=== PATIENT | female | born 1945 | race Caucasian/White ===

== ENCOUNTER → 2018-01-11 | Outpatient (CLI) | payer MEDICARE ==
[~2018-01-11] MED LIST: AREDS PO; ASPI81CH PO; Adalat/Procardi20 MG PO; CIPR500 PO; HYDACE5 PO; INS70/30I SC; INSUL100I SC; LEVSOD50 PO; LISI20 PO; METF500 PO; METR500 PO; MULVITMIND PO; NIFE30ER PO; OSTEO BI-FLEX1 EAC2 PO; OXYACE5T PO; Omeprazole20 M1 PO; PARO20 PO; RXHYDACE PO
== END | disposition home or self-care (01) ==
LOC: LAB SRC 11:04
DX: N30.00 Acute cystitis without hematuria (principal); R11.0 Nausea
CPT/HCPCS: 87077; 87086; 87186

== ENCOUNTER 2019-01-29 04:12 | Emergency (ER) | payer MEDICARE ==
[~2019-01-29] VITALS: Ht 165.1 cm; Wt 64.4 kg
[2019-01-29] MEDS ORDERED: Prednisone20 MG PO (05:05)
[2019-01-29] MEDS ORDERED: Amoxicillin875 MG PO (05:05)
== END 2019-01-29 05:38 | disposition home or self-care (01) ==
LOC: ER 04:12
DX: J02.9 Acute pharyngitis, unspecified (principal); K12.2 Cellulitis and abscess of mouth; E03.9 Hypothyroidism, unspecified; E11.9 Type 2 diabetes mellitus without complications; I10 Essential (primary) hypertension; Z88.5 Allergy status to narcotic agent; Z79.899 Other long term (current) drug therapy; Z79.4 Long term (current) use of insulin; Z79.82 Long term (current) use of aspirin
CPT/HCPCS: 71046; 87081; 87430; 99283-25; J7512

== ENCOUNTER 2019-03-09 22:22 | Emergency (ER) | payer MEDICARE ==
[~2019-03-09] VITALS: Ht 162.6 cm; Wt 69.0 kg
[~2019-03-09 22:22] MED LIST changes: +Amoxicillin875 MG PO; +Prednisone20 MG PO
[2019-03-10 01:10] LABS: BASOPHILS ABSOLUTE AUTO 0.02 K/mm3 (0.00-0.23); BASOPHILS PERCENT AUTO 0 % (0-2); EOSINOPHILS PERCENT AUTO 0 % (0-6); Hematocrit 39.7 % (33.0-51.0); Hemoglobin 13.6 g/dL (11.5-16.0); IMMATURE GRAN ABSOLUTE AUTO 0.02 K/mm3 (0.00-0.10); IMMATURE GRAN PERCENT AUTO 0 % (0-1); LYMPHOCYTES ABSOLUTE AUTO 0.98 K/mm3 (0.84-5.20); LYMPHOCYTES PERCENT AUTO 14 % (21-46); MONOCYTES ABSOLUTE AUTO 0.07 K/mm3 (0.16-1.47); MONOCYTES PERCENT AUTO 1 % (4-13); Mean Corpuscular HGB 29.2 pg (26.0-34.0); Mean Corpuscular HGB Conc 34.3 g/dL (31.5-36.5); Mean Corpuscular Volume 85 fL (80-100); Mean Platelet Volume 10.7 fL (9.1-12.4); NEUTROPHILS ABSOLUTE AUTO 5.73 K/mm3 (1.96-9.15); NEUTROPHILS PERCENT AUTO 84 % (41-73); Platelet Count 312 K/mm3 (150-400); RDW Coefficient Variation 12.1 % (11.7-14.2); RDW Standard Deviation 37.2 fL (35.1-46.3); Red Blood Cell Count 4.66 M/mm3 (3.80-5.20); White Blood Cell Count 6.82 K/mm3 (4.00-11.30)
[2019-03-10 01:30] LABS: Alanine Aminotransfer (ALT/SGP 21 U/L (12-78); Albumin/Globulin Ratio 1.1 (0.8-1.8); Alk Phos 110 U/L (50-136); Anion Gap 9 mmol/L (6-16); Aspartate Aminotrans (AST/SGOT 17 U/L (12-37); Bilirubin, Total 0.3 mg/dL (0.1-1.0); Blood Urea Nitrogen 21 mg/dL (8-24); CO2, Blood 24 mmol/L (21-32); Calcium, Blood 9.4 mg/dL (8.5-10.1); Chloride, Blood 99 mmol/L (98-108); Globulin, Blood 3.5 g/dL (2.2-4.0); Glomerular Filtration Rate >60 (60-); Glucose, Blood 405 mg/dL (70-99); Potassium, Blood 4.7 mmol/L (3.5-5.5); Sodium, Blood 132 mmol/L (136-145); Total Protein, Blood 7.5 g/dL (6.4-8.2)
== END 2019-03-10 02:15 | disposition home or self-care (01) ==
LOC: ER 22:22
PROVIDERS: Emergency Medicine
DX: E11.65 Type 2 diabetes mellitus with hyperglycemia (principal); E03.9 Hypothyroidism, unspecified; I10 Essential (primary) hypertension; Z79.899 Other long term (current) drug therapy
CPT/HCPCS: 36415; 80053; 82947; 85025; 96360; 99284-25; J7030

== ENCOUNTER → 2019-11-01 | Outpatient (CLI) | payer OTHER ==
[~2019-11-01] MED LIST changes: +AMLO5 PO; +Bentyl20 MG PO; +INSULANPEN SC; +Metformin HCl750 MG PO; +ONDA4ODT MM; +ONDA4ODT SL; +PARO25 PO; +Synthroid88 MCG; +ZESTORETIC 20-121 EA PO
[2019-11-01 18:15] LABS: Bilirubin, Urine Neg (Neg); Blood, Urine 1+ (Neg); Glucose Qualitative, Urine Neg (Neg); Ketones, Urine Neg (Neg); Leukocyte Esterase, Urine 2+ (Neg); Nitrite, Urine Neg (Neg); Protein, Urine Neg (Neg); Urobilinogen, Urine NORM (Normal)
[2019-11-01 18:32] LABS: Appearance, Urine Hazy (Clear); Color, Urine Yellow (P-Yellow)
[2019-11-01 18:34] LABS: Red Blood Cells, Urine 0-2 /hpf (0-2); Squamous Epithelial Cells Mod /hpf (Few)
[2019-11-01 18:35] LABS: Bacteria Few /hpf
== END | disposition home or self-care (01) ==
LOC: LAB SHORT 12:00 → LAB SRC 12:00
PROVIDERS: Registered Nurse
DX: R30.0 Dysuria (principal)
CPT/HCPCS: 81001; 87077; 87086; 87186

== ENCOUNTER → 2020-05-23 | Outpatient (CLI) | payer OTHER | END | disposition home or self-care (01) | LOC: LAB SRC 11:46 → LAB SHORT 11:46 | DX: Z13.6 Encounter for screening for cardiovascular disorders (principal); I10 Essential (primary) hypertension; E11.39 Type 2 diabetes mellitus with other diabetic ophthalmic complication; E03.9 Hypothyroidism, unspecified; Z79.899 Other long term (current) drug therapy | CPT/HCPCS: 82043 ==

== ENCOUNTER 2021-01-14 12:56 | Day surgery (SDC) | payer OTHER ==
[~2021-01-14] VITALS: Ht 165.1 cm; Wt 61.6 kg
[~2021-01-14 12:56] MED LIST changes: +Amlodipine Besyl5 MG PO; +Aspirin EC81 MG PO; +BASAGLAR K100 UNIT/1 SC; +Glucophage Xr750 MG PO; +LEVSOD75 PO; +MULTIPLE VITAM1 EACH PO
== END 2021-01-14 17:05 | disposition home or self-care (01) ==
LOC: ORSCSDS 12:56
PROVIDERS: Internal Medicine Gastroenterology
PROC: 0DBE8ZX Excision of Large Intestine, Via Natural or Artificial Opening Endoscopic, Diagnostic (ICD-10-PCS; principal; 2021-01-14 14:00)
PROC: 0DB78ZX Excision of Stomach, Pylorus, Via Natural or Artificial Opening Endoscopic, Diagnostic (ICD-10-PCS; principal; 2021-01-14 14:00)
PROC: 0DB98ZX Excision of Duodenum, Via Natural or Artificial Opening Endoscopic, Diagnostic (ICD-10-PCS; principal; 2021-01-14 14:00)
DX: R10.12 Left upper quadrant pain (principal); R10.32 Left lower quadrant pain; K29.70 Gastritis, unspecified, without bleeding; R10.13 Epigastric pain; R19.7 Diarrhea, unspecified; K57.30 Diverticulosis of large intestine without perforation or abscess without bleeding; K64.8 Other hemorrhoids; K44.9 Diaphragmatic hernia without obstruction or gangrene; I10 Essential (primary) hypertension; E03.9 Hypothyroidism, unspecified; E10.8 Type 1 diabetes mellitus with unspecified complications; Z79.4 Long term (current) use of insulin; Z79.82 Long term (current) use of aspirin; Z79.899 Other long term (current) drug therapy
CPT/HCPCS: 82947; 88305; 88342; J2704; J7120

== ENCOUNTER → 2021-02-06 | Outpatient (CLI) | payer OTHER | LOC: LAB SHORT 12:58 | DX: D48.5 Neoplasm of uncertain behavior of skin (principal) | CPT/HCPCS: 88305 ==

== ENCOUNTER → 2021-05-22 | Outpatient (CLI) | payer OTHER | LOC: LAB SHORT 17:46 → LAB 17:46 | DX: R35.0 Frequency of micturition (principal); Z88.5 Allergy status to narcotic agent; Z88.1 Allergy status to other antibiotic agents | CPT/HCPCS: 87077; 87086; 87186 ==

== ENCOUNTER → 2021-12-16 | Outpatient (CLI) | payer OTHER | LOC: LAB SHORT 10:30 → LAB 10:30 → LAB FUT 12-08 13:10 | DX: E11.39 Type 2 diabetes mellitus with other diabetic ophthalmic complication (principal); Z79.4 Long term (current) use of insulin; Z79.84 Long term (current) use of oral hypoglycemic drugs; Z79.82 Long term (current) use of aspirin | CPT/HCPCS: 82043 ==

== ENCOUNTER → 2022-06-02 | Outpatient (CLI) | payer OTHER ==
[2022-06-02 17:44] LABS: Source, Urine Clean Catch
[2022-06-02 19:19] LABS: Appearance, Urine Hazy (Clear); Bilirubin, Urine Neg (Neg); Blood, Urine 1+ (Neg); Glucose Qualitative, Urine Neg (Neg); Ketones, Urine Neg (Neg); Leukocyte Esterase, Urine 3+ (Neg); Nitrite, Urine Pos (Neg); Protein, Urine Neg (Neg); Urobilinogen, Urine NORM (Normal)
[2022-06-02 19:29] LABS: Color, Urine Pale Yellow (P-Yellow)
[2022-06-02 19:30] LABS: Bacteria Many /hpf; Red Blood Cells, Urine 0-2 /hpf (0-2); Squamous Epithelial Cells Few /hpf (Few); Transitional Epithelial Cells Few /hpf (0-Rare)
== END | disposition home or self-care (01) ==
LOC: LAB SHORT 09:45 → LAB 09:45
PROVIDERS: Registered Nurse
DX: R30.0 Dysuria (principal)
CPT/HCPCS: 81001; 87077; 87086; 87186

== ENCOUNTER 2022-07-04 11:41 | Inpatient (IN) | payer OTHER ==
[~2022-07-04] VITALS: Ht 162.6 cm; Wt 67.1 kg
[2022-07-04 13:11] LABS: BASOPHILS PERCENT AUTO 2 % (0-2); EOSINOPHILS ABSOLUTE AUTO 0.14 K/mm3 (0.00-0.68); EOSINOPHILS PERCENT AUTO 2 % (0-6); Hematocrit 41.7 % (33.0-51.0); Hemoglobin 14.6 g/dL (11.5-16.0); IMMATURE GRAN ABSOLUTE AUTO 0.02 K/mm3 (0.00-0.10); IMMATURE GRAN PERCENT AUTO 0 % (0-1); LYMPHOCYTES ABSOLUTE AUTO 1.68 K/mm3 (0.84-5.20); LYMPHOCYTES PERCENT AUTO 26 % (21-46); MONOCYTES ABSOLUTE AUTO 0.63 K/mm3 (0.16-1.47); MONOCYTES PERCENT AUTO 10 % (4-13); Mean Corpuscular Volume 86 fL (80-100); Mean Platelet Volume 9.4 fL (9.1-12.4); NEUTROPHILS ABSOLUTE AUTO 3.91 K/mm3 (1.96-9.15); NEUTROPHILS PERCENT AUTO 60 % (41-73); Platelet Count 294 K/mm3 (150-400); RDW Coefficient Variation 12.9 % (11.7-14.2); RDW Standard Deviation 40.3 fL (35.1-46.3); Red Blood Cell Count 4.86 M/mm3 (3.80-5.20); White Blood Cell Count 6.48 K/mm3 (4.00-11.30)
[2022-07-04 13:24] LABS: Bun/Creatinine Ratio 40.1 (12.0-20.0); Calcium, Blood 9.8 mg/dL (8.5-10.1); Creatinine, Blood 0.42 mg/dL (0.40-1.00); Potassium, Blood 4.2 mmol/L (3.5-5.5)
[2022-07-04 15:25] LABS: Prothrombin Time Results 10.5 Sec (9.7-11.5)
[2022-07-04 16:17] LABS: Influenza A, PCR NEGATIVE (NEGATIVE); Influenza B, PCR NEGATIVE (NEGATIVE); Resp Syncytial Virus, PCR NEGATIVE (NEGATIVE); SARS-Cov-2 (COVID-19) PCR, MMC NEGATIVE (NEGATIVE)
--- NOTE | 2022-07-04 19:42 | NUR ---
PT ARRIVED TO UNIT SLIDE TO BED WITH SLIDE SHEET. PT REPORTS PAIN TO R HIP BUT IS ABLE TO HELP WITH ROLLING FOR BED JIMENEZ. SHE STATES IT IS TOLERABLE AT THIS TIME AND DENIED PAIN DURING SHIFT. PT WILL BE NPO AT MIDNIGHT. SHE UNDERSTANDS THIS ORDER. CALL LIGHT IN REACH, ORIENTED TO USE
--- NOTE | 2022-07-05 04:42 | NUR ---
SHIFT SUMMARY PATIENT NEW ADMIT FOR GLF WITH R HIP FX. SURGICAL CONSULT IN THE ER DONE. HAS BEEN NPO SINCE MIDNIGHT. MEDICATED FOR PAIN PER EMAR, WITH SOME RELIEF. HAVING SPASMS IN LEG AFTER REPOSITIONING. USES BEDPAN AND VOIDING REGULARY, IV FLUIDS INFUSING. SBP HIGH WITH PAIN IN THE 160'S. COMES DOWN AFTER PAIN MEDICATION IS EFFECTIVE TO THE 130'S-140'S. SATING AOBVE 95% ON RA. CALL LIGHT IN REACH. WILL REPORT TO ONCOMING DAY RN.
[2022-07-05 04:46] LABS: BASOPHILS ABSOLUTE AUTO 0.09 K/mm3 (0.00-0.23); BASOPHILS PERCENT AUTO 1 % (0-2); EOSINOPHILS ABSOLUTE AUTO 0.03 K/mm3 (0.00-0.68); EOSINOPHILS PERCENT AUTO 0 % (0-6); Hemoglobin 12.8 g/dL (11.5-16.0); IMMATURE GRAN ABSOLUTE AUTO 0.03 K/mm3 (0.00-0.10); IMMATURE GRAN PERCENT AUTO 0 % (0-1); LYMPHOCYTES ABSOLUTE AUTO 1.14 K/mm3 (0.84-5.20); LYMPHOCYTES PERCENT AUTO 10 % (21-46); MONOCYTES ABSOLUTE AUTO 0.78 K/mm3 (0.16-1.47); MONOCYTES PERCENT AUTO 7 % (4-13); Mean Corpuscular HGB Conc 34.6 g/dL (31.5-36.5); Mean Corpuscular Volume 87 fL (80-100); Mean Platelet Volume 9.7 fL (9.1-12.4); NEUTROPHILS ABSOLUTE AUTO 9.53 K/mm3 (1.96-9.15); NEUTROPHILS PERCENT AUTO 82 % (41-73); Platelet Count 262 K/mm3 (150-400); Red Blood Cell Count 4.26 M/mm3 (3.80-5.20)
[2022-07-05 05:08] LABS: Bun/Creatinine Ratio 31.2 (12.0-20.0); Calcium, Blood 8.7 mg/dL (8.5-10.1); Creatinine, Blood 0.48 mg/dL (0.40-1.00); Potassium, Blood 4.5 mmol/L (3.5-5.5)
--- NOTE | 2022-07-05 08:44 | NUR ---
PATIENT TO DAY SURGERY VIA BED BY OR STAFF.
--- NOTE | 2022-07-05 11:34 | NUR ---
PATIENT RETURNED TO ROOM FROM PACU. LUNGS CLEAR, BLOOD PRESSURE SOFT, BUT STABLE. PATIENT IS A&O X4. X1 AQUACEL TO RIGHT HIP, PATIENT REPORTS MINIMAL PAIN, DENIES NEED FOR PAIN MEDICATION AT THIS TIME. CALL LIGHT IN REACH.
[2022-07-05 14:55] LABS: Bun/Creatinine Ratio 25.6 (12.0-20.0); Calcium, Blood 8.7 mg/dL (8.5-10.1); Creatinine, Blood 0.63 mg/dL (0.40-1.00)
--- NOTE | 2022-07-05 17:36 | NUR ---
Met with pt briefly as requested by Dr. Carlos. Pt has declined to put a next of kin on her facesheet. She states it's "No one else's problem but mine". She is adamant about this, and does not wish to continue the visit at this time.
--- NOTE | 2022-07-05 18:29 | NUR ---
SHIFT SUMMARY POD 0 R NA HIP. X1 AQUACEL TO R HIP, C/D/I. MINIMAL PAIN REPORTED. 1P ASSIST W/ FWW & GB TO BSC & CHAIR, PATIENT TOLERATED VERY WELL. BLOOD PRESSURE IMPROVED ANESTHESIA CONTINUED TO WEAR OFF, VSS ON RA AT THIS TIME. EATING, DRINKING, & VOIDING WELL. CALLS APPROPRIATELY, WILL REPORT TO ONCOMING RN.
[2022-07-06] MEDS ORDERED: INSULANI (00:03)
--- NOTE | 2022-07-06 00:24 | NUR ---
LOST IV ACCESS, ATTEMPTED TO REPLACE UNSUCCESSFUL. CALLED DR. CORRAL TO NOTIFY AND RECIEVED ORDER FOR ORAL PAIN MEDICATION. NOTIFIED OF BLOOD GLUCOSE OF 330 AND ORDER TO RESUME HOME DOSE OF LANTUS OBTAINED. DR. CORRAL RECOMENDED TO FOLLOW UP WITH SURGEON REGARDING SECOND DOSE OF ANCEF.
--- NOTE | 2022-07-06 04:55 | NUR ---
SHIFT SUMMARY POD 1 R HIP NAILING. AQUACEL DRESSING TO R HIP, C/D/I. WBAT POSTERIOR HIP PRECAUTIONS. AOX4, TOLERATES PO INTAKE. 1 SBA W/ FWW, GB TO BSC/CHAIR. LOST IV ACCESS THIS SHIFT, AFTER A FEW ATTEMPTS UNCSUCCESSFUL ORDER OBTAINED FOR PO PAIN MEDICATIONS. 2 NORCO 5/325. PATIENT IS CURRENTLY RESTING AFTER HAVING CONSIDERABLE AMOUNT OF PAIN. EDUCATED PATIENT ON IMPORTANCE OF ASKING FOR PAIN MEDICATIONS TO STAY AHEAD OF PAIN AND NOT LET IT GET OUT OF CONTROL. GLUCOSE MONITORED AT 330 THIS EVENING, DR NOTIFIED, ORDER TO RESUME HOME DOSE OF LANTUS. PATIENT HAVING CRAMPS IN LEGS DENIES N.T. SBP ELEVATED AT TIMES OF PAIN, SBP RESOLVES WITH PAIN MEDICATION. VSS. CALL LIGHT IN REACH, REPORT DAY RN.
[2022-07-06 07:42] LABS: Anion Gap 6 mmol/L (6-16); Blood Urea Nitrogen 19 mg/dL (8-24); Bun/Creatinine Ratio 44.1 (12.0-20.0); CO2, Blood 24 mmol/L (21-32); Calcium, Blood 8.5 mg/dL (8.5-10.1); Chloride, Blood 94 mmol/L (98-108); Creatinine, Blood 0.43 mg/dL (0.40-1.00); Glomerular Filtration Rate 99 (60-); Glucose, Blood 190 mg/dL (70-99); Phosphorus, Blood 2.5 mg/dL (2.5-4.9); Potassium, Blood 4.7 mmol/L (3.5-5.5); Sodium, Blood 124 mmol/L (136-145)
[2022-07-06 09:16] LABS: BASOPHILS ABSOLUTE AUTO 0.05 K/mm3 (0.00-0.23); BASOPHILS PERCENT AUTO 1 % (0-2); EOSINOPHILS ABSOLUTE AUTO 0.04 K/mm3 (0.00-0.68); EOSINOPHILS PERCENT AUTO 0 % (0-6); Hematocrit 33.1 % (33.0-51.0); Hemoglobin 11.1 g/dL (11.5-16.0); IMMATURE GRAN ABSOLUTE AUTO 0.03 K/mm3 (0.00-0.10); IMMATURE GRAN PERCENT AUTO 0 % (0-1); LYMPHOCYTES ABSOLUTE AUTO 1.31 K/mm3 (0.84-5.20); LYMPHOCYTES PERCENT AUTO 13 % (21-46); MONOCYTES ABSOLUTE AUTO 0.82 K/mm3 (0.16-1.47); MONOCYTES PERCENT AUTO 8 % (4-13); Mean Corpuscular HGB 29.8 pg (26.0-34.0); Mean Corpuscular HGB Conc 33.5 g/dL (31.5-36.5); Mean Corpuscular Volume 89 fL (80-100); Mean Platelet Volume 10.1 fL (9.1-12.4); NEUTROPHILS ABSOLUTE AUTO 7.54 K/mm3 (1.96-9.15); NEUTROPHILS PERCENT AUTO 77 % (41-73); Platelet Count 199 K/mm3 (150-400); RDW Standard Deviation 42.5 fL (35.1-46.3); Red Blood Cell Count 3.73 M/mm3 (3.80-5.20); White Blood Cell Count 9.79 K/mm3 (4.00-11.30)
--- NOTE | 2022-07-06 19:56 | NUR ---
SHIFT SUMMARY PT A&O4, VSS/RA, ELIJAH PO, AMB SBA FWW GB TO BRP/UP TO CHAIR T/O SHIFT AND REPOSITIONS SELF WELL IN BED, VOIDING WELL, PAIN TREATED WITH 5 MG NORCO. POD1 R NA HIP, AQUACEL DRY INTACT. REPORT PROVIDED TO HUMBERTO DIEZ.
[2022-07-07 05:51] LABS: Hematocrit 29.5 % (33.0-51.0); Hemoglobin 10.1 g/dL (11.5-16.0)
--- NOTE | 2022-07-07 05:53 | NUR ---
SHIFT SUMMARY AOX4. VSS. NO ACUTE CHANGES OVERNIGHT. PAIN IS WELL MANAGED WITH NORCO 10MG, Q4. PT AMBULATES IN THE BATHROOM WITH WITH 1 PERSON ASSIST, FWW AND GB. PT REPORTS PAIN IS MORE TOLERABLE TONIGHT THAN THE OTHER NIGHTS. VSS. TOLERATING PO INTAKE. DENIES NAUSEA AND VOMITING. VOIDING ADEQUATELY. R HIP WITH AQUACEL DRESSING REMAIN INTACT. WITH SMALL SHADOWING. PT DENIES CHEST PAIN, SOB AND DIZZINESS. PT ALSO SLEPT GOOD OVERNIGHT. CALL LIGHT WITHIN REACH. WILL CONTINUE TO MONITOR AND WILL PROVIDE REPORT TO ONCOMING NURSE.
[2022-07-07 05:59] LABS: Calcium, Blood 8.5 mg/dL (8.5-10.1); Creatinine, Blood 0.46 mg/dL (0.40-1.00); Potassium, Blood 4.4 mmol/L (3.5-5.5)
[2022-07-07 13:01] LABS: Influenza A, PCR NEGATIVE (NEGATIVE); Influenza B, PCR NEGATIVE (NEGATIVE); Resp Syncytial Virus, PCR NEGATIVE (NEGATIVE); SARS-Cov-2 (COVID-19) PCR, MMC NEGATIVE (NEGATIVE)
--- NOTE | 2022-07-07 17:00 | NUR ---
TRANSPORT SUMMARY PT A&O4, VSS/RA, ELIJAH PO, VOIDING WELL, AMB SBA FWW/GB, PAIN MANAGED WELL WITH NORCO 5 MG PRN. REPORT CALLED TO [facility]. LEFT FLOOR VIA WC WITH TRANSPORT WITH ALL PERSONAL POSSESSIONS INCLUDING PACKET FOR SNF/1 NARC SCRIPT INSIDE.
== END 2022-07-07 17:01 | DRG 522 ==
LOC: ER 11:41 → SURS 15:03
PROVIDERS: Emergency Medicine; Internal Medicine; Orthopaedic Surgery; ADMIT Internal Medicine
PROC: 0SRR0JZ Replacement of Right Hip Joint, Femoral Surface with Synthetic Substitute, Open Approach (ICD-10-PCS; principal; 2022-07-05 08:30)
DX: S72.001A Fracture of unspecified part of neck of right femur, initial encounter for closed fracture (principal); E87.1 Hypo-osmolality and hyponatremia; W18.30XA Fall on same level, unspecified, initial encounter; Z90.49 Acquired absence of other specified parts of digestive tract; Z90.710 Acquired absence of both cervix and uterus; Z66 Do not resuscitate; Z79.82 Long term (current) use of aspirin; Z79.4 Long term (current) use of insulin; Z79.899 Other long term (current) drug therapy; Z20.822 Contact with and (suspected) exposure to COVID-19; I10 Essential (primary) hypertension; E03.9 Hypothyroidism, unspecified; E11.9 Type 2 diabetes mellitus without complications; M19.90 Unspecified osteoarthritis, unspecified site; K21.9 Gastro-esophageal reflux disease without esophagitis; Z98.890 Other specified postprocedural states; M81.0 Age-related osteoporosis without current pathological fracture; Z88.1 Allergy status to other antibiotic agents; Z88.5 Allergy status to narcotic agent
CPT/HCPCS: 0241U; 36415; 72170; 73502; 80048; 80069; 82947; 85014; 85018; 85025; 85610; 85730; 94760; 96374; 96375; 97110; 97116; 97162; 97166; 97530; 97535; 99284-25; A9270; C1776; J0171; J0690; J0735; J1100; J1170; J1650; J1815; J1885; J2370; J2405; J2704; J2795; J3010; J7030

== ENCOUNTER → 2022-08-13 | Outpatient (CLI) | payer OTHER ==
[~2022-08-13] MED LIST changes: +INSULANI
[2022-08-13 15:49] LABS: BASOPHILS ABSOLUTE AUTO 0.07 K/mm3 (0.00-0.23); BASOPHILS PERCENT AUTO 1 % (0-2); EOSINOPHILS ABSOLUTE AUTO 0.12 K/mm3 (0.00-0.68); EOSINOPHILS PERCENT AUTO 2 % (0-6); Hematocrit 36.1 % (33.0-51.0); Hemoglobin 12.3 g/dL (11.5-16.0); IMMATURE GRAN ABSOLUTE AUTO 0.01 K/mm3 (0.00-0.10); IMMATURE GRAN PERCENT AUTO 0 % (0-1); LYMPHOCYTES PERCENT AUTO 39 % (21-46); MONOCYTES ABSOLUTE AUTO 0.56 K/mm3 (0.16-1.47); MONOCYTES PERCENT AUTO 10 % (4-13); Mean Corpuscular HGB 30.5 pg (26.0-34.0); Mean Corpuscular HGB Conc 34.1 g/dL (31.5-36.5); Mean Corpuscular Volume 90 fL (80-100); Mean Platelet Volume 10.6 fL (9.1-12.4); NEUTROPHILS PERCENT AUTO 48 % (41-73); Platelet Count 307 K/mm3 (150-400); RDW Coefficient Variation 13.2 % (11.7-14.2); RDW Standard Deviation 43.8 fL (35.1-46.3); Red Blood Cell Count 4.03 M/mm3 (3.80-5.20); White Blood Cell Count 5.66 K/mm3 (4.00-11.30)
[2022-08-13 16:25] LABS: Albumin, Blood 4.1 g/dL (3.4-5.0); Albumin/Globulin Ratio 1.4 (0.8-1.8); Bilirubin, Total 0.4 mg/dL (0.1-1.0); Bun/Creatinine Ratio 25.1 (12.0-20.0); Calcium, Blood 9.5 mg/dL (8.5-10.1); Creatinine, Blood 0.48 mg/dL (0.40-1.00); Globulin, Blood 2.9 g/dL (2.2-4.0); Potassium, Blood 4.5 mmol/L (3.5-5.5)
== END ==
LOC: LAB SHORT 12:28 → LAB 12:28
PROVIDERS: Registered Nurse
DX: E87.1 Hypo-osmolality and hyponatremia (principal); D75.839 Thrombocytosis, unspecified
CPT/HCPCS: 80053; 85025

== ENCOUNTER → 2022-09-28 | Outpatient (CLI) | payer OTHER ==
[2022-09-28 14:51] LABS: Source, Urine Clean Catch
[2022-09-28 17:57] LABS: Appearance, Urine Clear (Clear); Bilirubin, Urine Neg (Neg); Blood, Urine Neg (Neg); Color, Urine Yellow (P-Yellow); Glucose Qualitative, Urine Neg (Neg); Ketones, Urine Neg (Neg); Leukocyte Esterase, Urine 2+ (Neg); Nitrite, Urine Neg (Neg); Protein, Urine Neg (Neg); Urobilinogen, Urine NORM (Normal); pH, Urine 6.5 (5.0-8.0)
[2022-09-28 19:38] LABS: Red Blood Cells, Urine 0-2 /hpf (0-2)
[2022-09-28 19:39] LABS: Bacteria Mod /hpf; Squamous Epithelial Cells Rare /hpf (Few); Transitional Epithelial Cells Rare /hpf (0-Rare)
== END | disposition home or self-care (01) ==
LOC: LAB SHORT 14:49 → LAB 14:49
PROVIDERS: Registered Nurse
DX: R35.0 Frequency of micturition (principal)
CPT/HCPCS: 81001; 87086

== ENCOUNTER → 2023-04-08 | Outpatient (CLI) | payer OTHER | END | disposition home or self-care (01) | LOC: LAB 17:09 → LAB SHORT 17:09 | DX: R30.0 Dysuria (principal) | CPT/HCPCS: 87086 ==

== ENCOUNTER 2024-06-13 10:31 | Day surgery (SDC) | payer OTHER ==
[~2024-06-13] VITALS: Ht 165.1 cm; Wt 64.9 kg
[~2024-06-13 10:31] MED LIST changes: +Balanced Salt Epinephrine Irrigation Solution 500 mL IR SCH; +Lidocaine HCl/Pf 1% 5 ML VIAL XX SCH; +Moxifloxacin HCL 0.5 MG/0.1 ML 0.4MLSYR LEFTEYE SCH; +NS 500 ML IV ONE; +PHENYLEPHRINE\\TROPICAMIDE\\TETRACAINE OPHTHALMIC DILATING SOLN LEFTEYE PRN; +Povidone-Iodine 450 DROP/30 ML Solution LEFTEYE SCH
[2024-06-13] MEDS ORDERED: Midazolam HCl 1MG / ML 2ML Vial ONE (11:55)
[2024-06-13] MEDS ORDERED: FentaNYL Citrate 50 MCG/ML 2 ML Injection ONE (11:55)
[2024-06-13] MEDS ORDERED: NS 500 ML IV ONE (12:38)
[2024-06-13 13:45] VITALS: BP 145/62
== END 2024-06-13 14:24 | disposition home or self-care (01) ==
LOC: ORSCSDS 10:31
PROVIDERS: Student in an Organized Health Care Education/Training Program
PROC: 08RK3JZ Replacement of Left Lens with Synthetic Substitute, Percutaneous Approach (ICD-10-PCS; principal; 2024-06-13 12:00)
DX: E11.36 Type 2 diabetes mellitus with diabetic cataract (principal); H25.813 Combined forms of age-related cataract, bilateral; E11.22 Type 2 diabetes mellitus with diabetic chronic kidney disease; I12.9 Hypertensive chronic kidney disease with stage 1 through stage 4 chronic kidney disease, or unspecified chronic kidney disease; N18.9 Chronic kidney disease, unspecified; Z79.4 Long term (current) use of insulin; Z79.82 Long term (current) use of aspirin; Z79.899 Other long term (current) drug therapy
CPT/HCPCS: 82947; J2250; J3010; J7040; V2632

== ENCOUNTER 2024-06-20 11:15 | Day surgery (SDC) | payer OTHER ==
[~2024-06-20] VITALS: Ht 162.6 cm; Wt 64.7 kg
[~2024-06-20 11:15] MED LIST changes: +FentaNYL Citrate 50 MCG/ML 2 ML Injection ONE; +Midazolam HCl 1MG / ML 2ML Vial ONE; -Moxifloxacin HCL 0.5 MG/0.1 ML 0.4MLSYR LEFTEYE SCH; +Moxifloxacin HCL 0.5 MG/0.1 ML 0.4MLSYR RIGHTEYE SCH; -PHENYLEPHRINE\\TROPICAMIDE\\TETRACAINE OPHTHALMIC DILATING SOLN LEFTEYE PRN; +PHENYLEPHRINE\\TROPICAMIDE\\TETRACAINE OPHTHALMIC DILATING SOLN RIGHTEYE PRN; -Povidone-Iodine 450 DROP/30 ML Solution LEFTEYE SCH; +Povidone-Iodine 450 DROP/30 ML Solution RIGHTEYE SCH
[2024-06-20] MEDS ORDERED: NS 500 ML IV ONE (12:16)
[2024-06-20 12:59] VITALS: BP 129/52
--- NOTE | 2024-06-20 13:00 | NUR ---
06/20/24 1300 IAIN GRAHAM PT DECLINES FOOD OR DRINK
== END 2024-06-20 13:40 | disposition home or self-care (01) ==
LOC: ORSCSDS 11:15
PROVIDERS: Student in an Organized Health Care Education/Training Program
PROC: 08RJ3JZ Replacement of Right Lens with Synthetic Substitute, Percutaneous Approach (ICD-10-PCS; principal; 2024-06-20 12:00)
DX: E11.36 Type 2 diabetes mellitus with diabetic cataract (principal); H25.811 Combined forms of age-related cataract, right eye; Z96.1 Presence of intraocular lens; I10 Essential (primary) hypertension; K21.9 Gastro-esophageal reflux disease without esophagitis; E07.9 Disorder of thyroid, unspecified; Z79.85 Long-term (current) use of injectable non-insulin antidiabetic drugs; Z79.899 Other long term (current) drug therapy
CPT/HCPCS: 82947; J2250; J3010; J7040; V2632

== ENCOUNTER → 2024-11-02 | Outpatient (CLI) | payer OTHER ==
[~2024-11-02] MED LIST changes: -Balanced Salt Epinephrine Irrigation Solution 500 mL IR SCH; -FentaNYL Citrate 50 MCG/ML 2 ML Injection ONE; -Lidocaine HCl/Pf 1% 5 ML VIAL XX SCH; -Midazolam HCl 1MG / ML 2ML Vial ONE; -Moxifloxacin HCL 0.5 MG/0.1 ML 0.4MLSYR RIGHTEYE SCH; -NS 500 ML IV ONE; -PHENYLEPHRINE\\TROPICAMIDE\\TETRACAINE OPHTHALMIC DILATING SOLN RIGHTEYE PRN; -Povidone-Iodine 450 DROP/30 ML Solution RIGHTEYE SCH
== END ==
LOC: LAB 16:55 → LAB SHORT 16:55
DX: N30.00 Acute cystitis without hematuria (principal)
CPT/HCPCS: 87077; 87086; 87186

== ENCOUNTER → 2025-03-28 | Outpatient (CLI) | payer OTHER ==
[2025-03-28 15:22] LABS: BASOPHILS ABSOLUTE AUTO 0.09 K/mm3 (0.00-0.23); BASOPHILS PERCENT AUTO 1 % (0-2); EOSINOPHILS ABSOLUTE AUTO 0.15 K/mm3 (0.00-0.68); EOSINOPHILS PERCENT AUTO 2 % (0-6); Hematocrit 36.9 % (33.0-51.0); Hemoglobin 12.5 g/dL (11.5-16.0); IMMATURE GRAN ABSOLUTE AUTO 0.02 K/mm3 (0.00-0.10); IMMATURE GRAN PERCENT AUTO 0 % (0-1); LYMPHOCYTES ABSOLUTE AUTO 2.61 K/mm3 (0.84-5.20); LYMPHOCYTES PERCENT AUTO 40 % (21-46); MONOCYTES ABSOLUTE AUTO 0.54 K/mm3 (0.16-1.47); MONOCYTES PERCENT AUTO 8 % (4-13); Mean Corpuscular HGB Conc 33.9 g/dL (31.5-36.5); Mean Corpuscular Volume 89 fL (80-100); NEUTROPHILS ABSOLUTE AUTO 3.11 K/mm3 (1.96-9.15); NEUTROPHILS PERCENT AUTO 48 % (41-73); Platelet Count 271 K/mm3 (150-400); RDW Coefficient Variation 13.2 % (11.7-14.2); RDW Standard Deviation 42.7 fL (35.1-46.3); Red Blood Cell Count 4.16 M/mm3 (3.80-5.20); White Blood Cell Count 6.52 K/mm3 (4.00-11.30)
[2025-03-28 15:33] LABS: Albumin, Blood 3.7 g/dL (3.4-5.0); Albumin/Globulin Ratio 1.1 (0.8-1.8); Bilirubin, Total 0.4 mg/dL (0.1-1.0); Bun/Creatinine Ratio 45.9 (12.0-20.0); Calcium, Blood 9.4 mg/dL (8.5-10.1); Creatinine, Blood 0.37 mg/dL (0.40-1.00); Globulin, Blood 3.5 g/dL (2.2-4.0); Potassium, Blood 4.3 mmol/L (3.5-5.5); Total Protein, Blood 7.2 g/dL (6.4-8.2)
== END ==
LOC: LAB SHORT 15:18 → LAB 15:18
PROVIDERS: Chiropractor
DX: M54.9 Dorsalgia, unspecified (principal)
CPT/HCPCS: 80053; 85025

== ENCOUNTER → 2025-04-28 | Outpatient (CLI) | payer OTHER ==
[2025-04-28 14:15] LABS: BASOPHILS ABSOLUTE AUTO 0.11 K/mm3 (0.00-0.23); BASOPHILS PERCENT AUTO 1 % (0-2); EOSINOPHILS ABSOLUTE AUTO 0.23 K/mm3 (0.00-0.68); EOSINOPHILS PERCENT AUTO 3 % (0-6); Hematocrit 40.7 % (33.0-51.0); Hemoglobin 13.8 g/dL (11.5-16.0); IMMATURE GRAN ABSOLUTE AUTO 0.02 K/mm3 (0.00-0.10); IMMATURE GRAN PERCENT AUTO 0 % (0-1); LYMPHOCYTES ABSOLUTE AUTO 2.65 K/mm3 (0.84-5.20); LYMPHOCYTES PERCENT AUTO 33 % (21-46); MONOCYTES ABSOLUTE AUTO 0.79 K/mm3 (0.16-1.47); MONOCYTES PERCENT AUTO 10 % (4-13); Mean Corpuscular HGB Conc 33.9 g/dL (31.5-36.5); Mean Corpuscular Volume 88 fL (80-100); NEUTROPHILS ABSOLUTE AUTO 4.24 K/mm3 (1.96-9.15); NEUTROPHILS PERCENT AUTO 53 % (41-73); NRBC ABSOLUTE 0.00 K/mm3 (0.00-0.02); NRBC Auto 0.0 /100 WBC (0.0-0.2); Platelet Count 263 K/mm3 (150-400); RDW Coefficient Variation 12.7 % (11.7-14.2); RDW Standard Deviation 41.2 fL (35.1-46.3)
[2025-04-28 14:25] LABS: Alanine Aminotransfer (ALT/SGP 26.0 U/L (12-78); Albumin, Blood 4.3 g/dL (3.4-5.0); Albumin/Globulin Ratio 1.3 (0.8-1.8); Anion Gap 13.0 mmol/L (3-11); Aspartate Aminotrans (AST/SGOT 25.0 U/L (12-37); Bilirubin, Total 0.4 mg/dL (0.1-1.0); Blood Urea Nitrogen 14.0 mg/dL (8-24); CO2, Blood 28.0 mmol/L (21-32); Calcium, Blood 9.7 mg/dL (8.5-10.1); Chloride, Blood 100.0 mmol/L (98-108); Creatinine, Blood 0.37 mg/dL (0.40-1.00); Globulin, Blood 3.4 g/dL (2.2-4.0); Glucose, Blood 83.0 mg/dL (70-99); Magnesium, Blood 1.9 mg/dL (1.6-2.4); Potassium, Blood 4.1 mmol/L (3.5-5.5); Sodium, Blood 137.0 mmol/L (136-145); Total Protein, Blood 7.7 g/dL (6.4-8.2)
[2025-04-28 14:38] LABS: Thyroid Stimulating Hormone 2.992 uIU/mL (0.360-4.800)
== END | disposition home or self-care (01) ==
LOC: LAB SHORT 14:08 → LAB 14:08
PROVIDERS: Emergency Medicine
DX: E03.9 Hypothyroidism, unspecified (principal); R55 Syncope and collapse
CPT/HCPCS: 80053; 83690; 83735; 84439; 84443; 85025

== ENCOUNTER 2025-05-29 12:06 | Inpatient (IN) | payer OTHER ==
[~2025-05-29] VITALS: Ht 160 cm; Wt 62.0 kg
[2025-05-29] MEDS ORDERED: Ondansetron HCl 2 MG / ML 2ML Vial IV ONE (12:20)
[2025-05-29 12:52] LABS: BASOPHILS ABSOLUTE AUTO 0.08 K/mm3 (0.00-0.23); BASOPHILS PERCENT AUTO 1 % (0-2); EOSINOPHILS ABSOLUTE AUTO 0.07 K/mm3 (0.00-0.68); EOSINOPHILS PERCENT AUTO 1 % (0-6); Hematocrit 39.2 % (33.0-51.0); Hemoglobin 13.8 g/dL (11.5-16.0); IMMATURE GRAN ABSOLUTE AUTO 0.02 K/mm3 (0.00-0.10); IMMATURE GRAN PERCENT AUTO 0 % (0-1); LYMPHOCYTES ABSOLUTE AUTO 1.77 K/mm3 (0.84-5.20); LYMPHOCYTES PERCENT AUTO 27 % (21-46); MONOCYTES ABSOLUTE AUTO 0.70 K/mm3 (0.16-1.47); MONOCYTES PERCENT AUTO 11 % (4-13); Mean Corpuscular HGB Conc 35.2 g/dL (31.5-36.5); Mean Corpuscular Volume 84 fL (80-100); NEUTROPHILS ABSOLUTE AUTO 3.85 K/mm3 (1.96-9.15); NEUTROPHILS PERCENT AUTO 59 % (41-73); NRBC ABSOLUTE 0.00 K/mm3 (0.00-0.02); NRBC Auto 0.0 /100 WBC (0.0-0.2); Platelet Count 237 K/mm3 (150-400); RDW Coefficient Variation 12.4 % (11.7-14.2); RDW Standard Deviation 37.8 fL (35.1-46.3)
[2025-05-29 13:37] LABS: Alanine Aminotransfer (ALT/SGP 27.0 U/L (12-78); Albumin, Blood 3.9 g/dL (3.4-5.0); Albumin/Globulin Ratio 1.1 (0.8-1.8); Anion Gap 18.0 mmol/L (3-11); Aspartate Aminotrans (AST/SGOT 26.0 U/L (12-37); Bilirubin, Total 0.5 mg/dL (0.1-1.0); Blood Urea Nitrogen 7.0 mg/dL (8-24); CO2, Blood 18.0 mmol/L (21-32); Calcium, Blood 9.6 mg/dL (8.5-10.1); Chloride, Blood 93.0 mmol/L (98-108); Creatinine, Blood 0.42 mg/dL (0.40-1.00); Globulin, Blood 3.4 g/dL (2.2-4.0); Glucose, Blood 166.0 mg/dL (70-99); Potassium, Blood 3.9 mmol/L (3.5-5.5); Sodium, Blood 125.0 mmol/L (136-145); Total Protein, Blood 7.3 g/dL (6.4-8.2)
[2025-05-29] MEDS ORDERED: NS 1,000 ML IV SCH ×2 (16:10→21:15)
[2025-05-29] MEDS ORDERED: NS 500 ML IV SCH (16:20)
[2025-05-29 16:24] LABS: Magnesium, Blood 1.5 mg/dL (1.6-2.4)
[2025-05-29 16:58] LABS: Thyroid Stimulating Hormone 1.57 uIU/mL (0.360-4.800)
[2025-05-29 17:04] LABS: Source, Urine Clean Catch
[2025-05-29 17:12] LABS: Bilirubin, Urine Neg (Neg); Glucose Qualitative, Urine Neg (Neg); Ketones, Urine 4+ (Neg); Leukocyte Esterase, Urine Neg (Neg); Protein, Urine 1+ (Neg); Specific Gravity, Urine 1.015 (1.003-1.022); Urobilinogen, Urine NORM (Normal)
[2025-05-29 17:19] LABS: Color, Urine Pale Yellow (P-Yellow)
[2025-05-29] MEDS ORDERED: Ondansetron HCl 2 MG / ML 2ML Vial IV PRN (21:10)
[2025-05-29] MEDS ORDERED: Magnesium Sulf 2 GM/Water 50ML 50 ML IV ONE (21:20)
[2025-05-29] MEDS ORDERED: Diazepam 5 MG / ML 2ML SYR IV ONE (22:10)
[2025-05-29] MEDS ORDERED: OMEP20ER PO (22:28)
[2025-05-29] MEDS ORDERED: SUCR1 PO (22:30)
[2025-05-29] MEDS ORDERED: INSULANPEN SC (22:35)
[2025-05-29] MEDS ORDERED: MELO7.5 PO (22:36)
[2025-05-29] MEDS ORDERED: METF500 PO (22:40)
[2025-05-29 23:43] VITALS: BP 155/67
[2025-05-29 23:43] LABS: Anion Gap 16.0 mmol/L (3-11); Blood Urea Nitrogen 4.0 mg/dL (8-24); CO2, Blood 18.0 mmol/L (21-32); Calcium, Blood 8.9 mg/dL (8.5-10.1); Chloride, Blood 100.0 mmol/L (98-108); Creatinine, Blood 0.34 mg/dL (0.40-1.00); Glucose, Blood 160.0 mg/dL (70-99); Potassium, Blood 3.9 mmol/L (3.5-5.5); Sodium, Blood 130.0 mmol/L (136-145)
[2025-05-30 04:01] VITALS: BP 138/63
[2025-05-30 04:51] LABS: BASOPHILS ABSOLUTE AUTO 0.08 K/mm3 (0.00-0.23); BASOPHILS PERCENT AUTO 1 % (0-2); EOSINOPHILS ABSOLUTE AUTO 0.19 K/mm3 (0.00-0.68); EOSINOPHILS PERCENT AUTO 3 % (0-6); Hematocrit 35.9 % (33.0-51.0); Hemoglobin 13.0 g/dL (11.5-16.0); IMMATURE GRAN ABSOLUTE AUTO 0.02 K/mm3 (0.00-0.10); IMMATURE GRAN PERCENT AUTO 0 % (0-1); LYMPHOCYTES ABSOLUTE AUTO 2.44 K/mm3 (0.84-5.20); LYMPHOCYTES PERCENT AUTO 33 % (21-46); MONOCYTES ABSOLUTE AUTO 0.93 K/mm3 (0.16-1.47); MONOCYTES PERCENT AUTO 13 % (4-13); Mean Corpuscular HGB Conc 36.2 g/dL (31.5-36.5); Mean Corpuscular Volume 84 fL (80-100); NEUTROPHILS ABSOLUTE AUTO 3.69 K/mm3 (1.96-9.15); NEUTROPHILS PERCENT AUTO 50 % (41-73); NRBC ABSOLUTE 0.00 K/mm3 (0.00-0.02); NRBC Auto 0.0 /100 WBC (0.0-0.2); Platelet Count 233 K/mm3 (150-400); RDW Coefficient Variation 12.7 % (11.7-14.2); RDW Standard Deviation 38.6 fL (35.1-46.3)
[2025-05-30 05:01] LABS: Anion Gap 14.0 mmol/L (3-11); Blood Urea Nitrogen 5.0 mg/dL (8-24); CO2, Blood 20.0 mmol/L (21-32); Calcium, Blood 8.7 mg/dL (8.5-10.1); Chloride, Blood 99.0 mmol/L (98-108); Creatinine, Blood 0.35 mg/dL (0.40-1.00); Glucose, Blood 131.0 mg/dL (70-99); Magnesium, Blood 1.8 mg/dL (1.6-2.4); Potassium, Blood 3.4 mmol/L (3.5-5.5); Sodium, Blood 130.0 mmol/L (136-145)
[2025-05-30 07:25] VITALS: BP 149/74
[2025-05-30] MEDS ORDERED: Insulin Human Lispro 100 Units/ML 3ML Syringe SC SCH (07:30)
[2025-05-30] MEDS ORDERED: Enoxaparin 40 MG/0.4 ML SYR SC SCH (09:00)
[2025-05-30] MEDS ORDERED: Sucralfate 1000MG / 10ML UD BTL PO PRN (11:40)
[2025-05-30 12:28] VITALS: BP 151/70
[2025-05-30 15:35] VITALS: BP 160/73
[2025-05-30 20:45] VITALS: BP 143/71
[2025-05-30] MEDS ORDERED: Insulin Glargine-Yfgn 100 Unit/mL 3 ML SYR SC SCH (21:00)
[2025-05-31 00:03] VITALS: BP 167/76
[2025-05-31 04:12] VITALS: BP 158/78
[2025-05-31 04:41] LABS: BASOPHILS ABSOLUTE AUTO 0.07 K/mm3 (0.00-0.23); BASOPHILS PERCENT AUTO 1 % (0-2); EOSINOPHILS ABSOLUTE AUTO 0.29 K/mm3 (0.00-0.68); EOSINOPHILS PERCENT AUTO 4 % (0-6); Hematocrit 33.1 % (33.0-51.0); Hemoglobin 12.0 g/dL (11.5-16.0); IMMATURE GRAN ABSOLUTE AUTO 0.02 K/mm3 (0.00-0.10); IMMATURE GRAN PERCENT AUTO 0 % (0-1); LYMPHOCYTES ABSOLUTE AUTO 2.02 K/mm3 (0.84-5.20); LYMPHOCYTES PERCENT AUTO 31 % (21-46); MONOCYTES ABSOLUTE AUTO 0.70 K/mm3 (0.16-1.47); MONOCYTES PERCENT AUTO 11 % (4-13); Mean Corpuscular HGB Conc 36.3 g/dL (31.5-36.5); Mean Corpuscular Volume 82 fL (80-100); NEUTROPHILS ABSOLUTE AUTO 3.50 K/mm3 (1.96-9.15); NEUTROPHILS PERCENT AUTO 53 % (41-73); NRBC ABSOLUTE 0.00 K/mm3 (0.00-0.02); NRBC Auto 0.0 /100 WBC (0.0-0.2); Platelet Count 227 K/mm3 (150-400); RDW Coefficient Variation 12.5 % (11.7-14.2); RDW Standard Deviation 37.8 fL (35.1-46.3)
[2025-05-31 05:56] LABS: Anion Gap 11.0 mmol/L (3-11); Blood Urea Nitrogen 3.0 mg/dL (8-24); CO2, Blood 24.0 mmol/L (21-32); Calcium, Blood 8.5 mg/dL (8.5-10.1); Chloride, Blood 103.0 mmol/L (98-108); Creatinine, Blood 0.39 mg/dL (0.40-1.00); Glucose, Blood 184.0 mg/dL (70-99); Magnesium, Blood 1.5 mg/dL (1.6-2.4); Potassium, Blood 3.1 mmol/L (3.5-5.5); Sodium, Blood 135.0 mmol/L (136-145)
[2025-05-31 07:36] VITALS: BP 135/71
[2025-05-31] MEDS ORDERED: Mag Sulfate 1 GM/D5% 100ML 100 ML IV STA (10:55)
[2025-05-31] MEDS ORDERED: LISI20 PO (12:50)
== END 2025-05-31 13:55 | disposition home or self-care (01) | DRG 641 ==
LOC: ER 12:06 → MEDS 12:07
PROVIDERS: Emergency Medicine; Family Medicine; Nurse Practitioner Acute Care; Student in an Organized Health Care Education/Training Program; ADMIT Student in an Organized Health Care Education/Training Program
PROC: 0T9B70Z Drainage of Bladder with Drainage Device, Via Natural or Artificial Opening (ICD-10-PCS; principal; 2025-05-29)
DX: E87.1 Hypo-osmolality and hyponatremia (principal); N13.30 Unspecified hydronephrosis; E87.20 Acidosis, unspecified; E11.9 Type 2 diabetes mellitus without complications; E03.9 Hypothyroidism, unspecified; I10 Essential (primary) hypertension; Z90.49 Acquired absence of other specified parts of digestive tract; E83.42 Hypomagnesemia; K29.70 Gastritis, unspecified, without bleeding; Z88.1 Allergy status to other antibiotic agents; Z88.5 Allergy status to narcotic agent; Z79.82 Long term (current) use of aspirin; Z79.4 Long term (current) use of insulin; Z79.890 Hormone replacement therapy; Z79.899 Other long term (current) drug therapy
CPT/HCPCS: 36415; 51702; 51798; 71045; 74177; 80048; 80053; 82947; 83690; 83735; 84295; 84439; 84443; 85025; 93005; 93010; 96365-59; 96375-59; 97110; 97161; 97530; 99285-25; A9270; G0378; J1650; J1815; J2405; J3360; J3475; J7030; Q9967

== ENCOUNTER 2025-06-15 06:40 | Inpatient (IN) | payer OTHER ==
[~2025-06-15] VITALS: Ht 160 cm; Wt 59.5 kg
[~2025-06-15 06:40] MED LIST changes: +MELO7.5 PO; +OMEP20ER PO; +SUCR1 PO
[2025-06-15] MEDS ORDERED: FentaNYL Citrate 50 MCG/ML 2 ML Injection IV ONE (07:30)
[2025-06-15] MEDS ORDERED: Ondansetron HCl 2 MG / ML 2ML Vial IV ONE ×2 (07:30→09:10)
[2025-06-15 07:33] LABS: BASOPHILS ABSOLUTE AUTO 0.05 K/mm3 (0.00-0.23); BASOPHILS PERCENT AUTO 1 % (0-2); EOSINOPHILS ABSOLUTE AUTO 0.12 K/mm3 (0.00-0.68); EOSINOPHILS PERCENT AUTO 2 % (0-6); Hematocrit 36.2 % (33.0-51.0); Hemoglobin 12.7 g/dL (11.5-16.0); IMMATURE GRAN ABSOLUTE AUTO 0.05 K/mm3 (0.00-0.10); IMMATURE GRAN PERCENT AUTO 1 % (0-1); LYMPHOCYTES ABSOLUTE AUTO 1.64 K/mm3 (0.84-5.20); LYMPHOCYTES PERCENT AUTO 30 % (21-46); MONOCYTES ABSOLUTE AUTO 0.43 K/mm3 (0.16-1.47); MONOCYTES PERCENT AUTO 8 % (4-13); Mean Corpuscular HGB Conc 35.1 g/dL (31.5-36.5); Mean Corpuscular Volume 83 fL (80-100); NEUTROPHILS ABSOLUTE AUTO 3.12 K/mm3 (1.96-9.15); NEUTROPHILS PERCENT AUTO 58 % (41-73); NRBC ABSOLUTE 0.00 K/mm3 (0.00-0.02); NRBC Auto 0.0 /100 WBC (0.0-0.2); Platelet Count 346 K/mm3 (150-400); RDW Coefficient Variation 12.4 % (11.7-14.2); RDW Standard Deviation 37.7 fL (35.1-46.3)
[2025-06-15] MEDS ORDERED: Morphine Sulfate 4 MG/1 ML Injection IV ONE (07:50)
[2025-06-15 07:53] LABS: Anion Gap 12.0 mmol/L (3-11); Blood Urea Nitrogen 9.0 mg/dL (8-24); CO2, Blood 27.0 mmol/L (21-32); Calcium, Blood 9.9 mg/dL (8.5-10.1); Chloride, Blood 93.0 mmol/L (98-108); Creatinine, Blood 0.48 mg/dL (0.40-1.00); Glucose, Blood 170.0 mg/dL (70-99); Potassium, Blood 3.7 mmol/L (3.5-5.5); Sodium, Blood 128.0 mmol/L (136-145)
[2025-06-15] MEDS ORDERED: HYDROmorphone HCl/Pf 1MG SYR IV PRN ×2 (09:05→10:15)
[2025-06-15] MEDS ORDERED: Ketorolac Tromethamine 15mg Vial IV ONE (10:00)
[2025-06-15 12:03] VITALS: BP 177/78
[2025-06-15] MEDS ORDERED: SEMGLEE (Y100 UNIT/2 (12:14)
[2025-06-15] MEDS ORDERED: AMOX-CLAV 875-1 EAC5 (12:14)
[2025-06-15] MEDS ORDERED: AMLODIPINE BESYL5 MG PO (12:16)
[2025-06-15] MEDS ORDERED: Nitrofurantoin100 M1 PO (12:16)
[2025-06-15] MEDS ORDERED: PANTOPRAZOLE SO40 M2 PO (12:18)
[2025-06-15] MEDS ORDERED: SUCRALFATE114 PO (12:18)
[2025-06-15] MEDS ORDERED: Ondansetron HCl 2 MG / ML 2ML Vial IV PRN (12:25)
--- NOTE | 2025-06-15 13:49 | NUR ---
NEW ADMIT TO ROOM 219 PATIENT ADMITTED FOR LEFT HIP AND SHOULDER FX, GLF. SLING TO LEFT SHOULDER. PATIENT IS INCONT. WITH PUREWICK IN PLACE. ON 2L NC D/T HIGH RISK PAIN MEDICATION DESATS. PATIENT IS AOX4, ABLE TO GIVE HISTORY. ORTHO CONSULT IN PLACE AND AWARE. PATIENT WILL BE NPO @MIDNIGHT FOR SURGERY IN THE AM. VSS, CALL LIGHT IN REACH. REPORT O RAISA DIEZ TO ASSUME CARE.
[2025-06-15 14:22] VITALS: BP 147/69
--- NOTE | 2025-06-15 14:42 | NUR ---
REPORT RECEIVED FROM [facility]
[2025-06-15] MEDS ORDERED: Insulin Regular 100 UNIT/ML 10ML Vial SC SCH (16:30)
--- NOTE | 2025-06-15 19:03 | NUR ---
NO ACUTE CHANGE SINCE RECEIVED REPORT, REPORT PASSED TO NOC RN
[2025-06-15 19:55] VITALS: BP 151/62
[2025-06-15] MEDS ORDERED: Insulin Glargine-Yfgn 100 Unit/mL 3 ML SYR SC SCH (21:00)
--- NOTE | 2025-06-15 23:44 | NUR ---
RN TO ROOM TO ROUND; PT ASLEEP WITH EQUAL AND UNLABORED BREATHING. CALL LIGHT WITHIN REACH.
[2025-06-16] VITALS (19 sets, daily range): BP systolic 120–169; BP diastolic 56–100
--- NOTE | 2025-06-16 02:49 | NUR ---
RN TO ROOM TO ROUND; PT SLEEPING WITH EQUAL AND UNLABORED BREATHING, CONT BIOX IN PLACE. CALL LIGHT WITHIN REACH.
--- NOTE | 2025-06-16 04:02 | NUR ---
CHG BATH, NASAL SWAB, MOUTH RINSE COMPLETED. PUREWICK CHANGE COMPLETED.
--- NOTE | 2025-06-16 04:34 | NUR ---
SHIFT SUMMARY NO ACUTE EVENTS OVERNIGHT. PT HAD EPISODE OF DESATURATION DURING DAY SHIFT AFTER PAIN MEDICATION ADMINISTRATION. CONTINUOUS BIOX IN PLACE AND O2 REMAINS IN PLACE VIA NC. PT NPO AT MIDNIGHT IN ANTICIPATION OF SURGERY.
[2025-06-16 05:29] LABS: BASOPHILS ABSOLUTE AUTO 0.04 K/mm3 (0.00-0.23); BASOPHILS PERCENT AUTO 0 % (0-2); EOSINOPHILS ABSOLUTE AUTO 0.02 K/mm3 (0.00-0.68); EOSINOPHILS PERCENT AUTO 0 % (0-6); Hematocrit 32.8 % (33.0-51.0); Hemoglobin 11.3 g/dL (11.5-16.0); IMMATURE GRAN ABSOLUTE AUTO 0.03 K/mm3 (0.00-0.10); IMMATURE GRAN PERCENT AUTO 0 % (0-1); LYMPHOCYTES ABSOLUTE AUTO 1.06 K/mm3 (0.84-5.20); LYMPHOCYTES PERCENT AUTO 11 % (21-46); MONOCYTES ABSOLUTE AUTO 0.52 K/mm3 (0.16-1.47); MONOCYTES PERCENT AUTO 5 % (4-13); Mean Corpuscular HGB Conc 34.5 g/dL (31.5-36.5); Mean Corpuscular Volume 86 fL (80-100); NEUTROPHILS ABSOLUTE AUTO 8.01 K/mm3 (1.96-9.15); NEUTROPHILS PERCENT AUTO 83 % (41-73); NRBC ABSOLUTE 0.00 K/mm3 (0.00-0.02); NRBC Auto 0.0 /100 WBC (0.0-0.2); Platelet Count 283 K/mm3 (150-400); RDW Coefficient Variation 12.7 % (11.7-14.2); RDW Standard Deviation 39.2 fL (35.1-46.3)
[2025-06-16 05:48] LABS: Anion Gap 12.0 mmol/L (3-11); Blood Urea Nitrogen 9.0 mg/dL (8-24); CO2, Blood 25.0 mmol/L (21-32); Calcium, Blood 9.0 mg/dL (8.5-10.1); Chloride, Blood 93.0 mmol/L (98-108); Creatinine, Blood 0.44 mg/dL (0.40-1.00); Glucose, Blood 176.0 mg/dL (70-99); Potassium, Blood 4.5 mmol/L (3.5-5.5); Sodium, Blood 125.0 mmol/L (136-145)
[2025-06-16] MEDS ORDERED: FentaNYL Citrate 50 MCG/ML 2 ML Injection ONE (07:03)
[2025-06-16] MEDS ORDERED: Ropivacaine 0.5% HCL/PF 5 MG/ML 30ML Vial ONE (07:08)
[2025-06-16] MEDS ORDERED: Tranexamic Acid 100 ML IV ONE (07:13)
[2025-06-16] MEDS ORDERED: CeFAZolin Sodium 1000 mg Vial ONE (07:13)
[2025-06-16] MEDS ORDERED: Bupivacaine 0.5% W/EPI 1:200000 SDV 30 ML Vial ONE (07:14)
[2025-06-16] MEDS ORDERED: CefTRIAXone Sodium 2,000 MG in NS 100 ML IV ONE (07:20)
[2025-06-16] MEDS ORDERED: FentaNYL Citrate 50 MCG/ML 2 ML Injection IV PRN ×2 (07:20→07:25)
[2025-06-16] MEDS ORDERED: Albuterol 2.5 MG/3 ML VIAL INH PRN (07:20)
[2025-06-16] MEDS ORDERED: HYDROmorphone HCl/Pf 1MG SYR IV PRN ×2 (07:25→09:40)
[2025-06-16] MEDS ORDERED: Ondansetron HCl 2 MG / ML 2ML Vial IV PRN ×2 (07:25→09:35)
[2025-06-16] MEDS ORDERED: Rocuronium Bromide 10 MG/ML 5ML Injection IV ONE (08:05)
--- NOTE | 2025-06-16 08:41 | NUR ---
06/16/25 0841 Abril Lackey ROCEPHIN 2GM IV GIVEN AT 0817 AND VANCOMYCIN 1GM IV GIVEN AT 0820 BY HUMBERTO MORENO CRNA.
[2025-06-16] MEDS ORDERED: Dexamethasone Sod Phos 10 MG/ML 1ML VIAL ONE ×2 (08:42)
[2025-06-16] MEDS ORDERED: Ondansetron HCl 2 MG / ML 2ML Vial ONE ×2 (08:42→09:19)
[2025-06-16] MEDS ORDERED: Sugammadex Sodium 200 MG/2ML SDV (100 MG/ML) ONE (08:54)
[2025-06-16] MEDS ORDERED: HYDROmorphone HCl/Pf 1MG SYR ONE ×2 (09:27→10:00)
[2025-06-16] MEDS ORDERED: Naloxone HCl 0.4MG / ML 1ML Vial IV PRN (09:35)
[2025-06-16] MEDS ORDERED: Magnesium Hydroxide Conc 10 ML UDC PO PRN (09:35)
[2025-06-16] MEDS ORDERED: CeFAZolin Sodium 2,000 MG in NS 100 ML IV SCH (18:00)
--- NOTE | 2025-06-16 18:21 | NUR ---
SHIFT SUMMARY PT A&OX4 ABLE TO MAKE NEEDS KNOWN. HAD L HIP PINNING PROCEDURE TODAY AND L SHOULDER REDUCTION. NERVE BLOCK IN PLACE, PT STATES L ARM NUMB. PULSES STRONG IN ALL EXTREMITIES. PT ON 2 L O2 NC, O2 SAT 99%, BUT DESATS TO 80S WHEN SLEEPING AND BREATHING THROUGH MOUTH. PT DOES NOT C/O OF PAIN. CALL LIGHT IN REACH.
[2025-06-17 03:52] VITALS: BP 132/60
--- NOTE | 2025-06-17 04:36 | NUR ---
SHIFT SUMMARY NO ACUTE EVENTS OVERNIGHT. PT POD #1 FOR LEFT HIP PINNING AND LEFT SHOULDER REDUCTION. PT WITH BLOCKS DONE FOR BOTH AREAS AND PT REPORTS OF 0400 LEFT ARM REGAINING FUNCTION AND FEELING. LEFT ARM REMAINS IN IMMOBILIZER. PT UNABLE TO WEAN OFF O2 WHILE SLEEPING DUE TO MOUTH BREATHING. PT TOLERATING REGULAR DIET. PT PRESSURE DRESSING CDI. PT WITH PUREWICK IN PLACE.
[2025-06-17 06:43] LABS: BASOPHILS ABSOLUTE AUTO 0.03 K/mm3 (0.00-0.23); BASOPHILS PERCENT AUTO 0 % (0-2); EOSINOPHILS ABSOLUTE AUTO 0.01 K/mm3 (0.00-0.68); EOSINOPHILS PERCENT AUTO 0 % (0-6); Hematocrit 30.2 % (33.0-51.0); Hemoglobin 10.5 g/dL (11.5-16.0); IMMATURE GRAN ABSOLUTE AUTO 0.03 K/mm3 (0.00-0.10); IMMATURE GRAN PERCENT AUTO 0 % (0-1); LYMPHOCYTES ABSOLUTE AUTO 1.14 K/mm3 (0.84-5.20); LYMPHOCYTES PERCENT AUTO 12 % (21-46); MONOCYTES ABSOLUTE AUTO 0.74 K/mm3 (0.16-1.47); MONOCYTES PERCENT AUTO 8 % (4-13); Mean Corpuscular HGB Conc 34.8 g/dL (31.5-36.5); Mean Corpuscular Volume 87 fL (80-100); NEUTROPHILS ABSOLUTE AUTO 7.98 K/mm3 (1.96-9.15); NEUTROPHILS PERCENT AUTO 80 % (41-73); NRBC ABSOLUTE 0.00 K/mm3 (0.00-0.02); NRBC Auto 0.0 /100 WBC (0.0-0.2); Platelet Count 215 K/mm3 (150-400); RDW Coefficient Variation 13.0 % (11.7-14.2); RDW Standard Deviation 40.6 fL (35.1-46.3)
[2025-06-17 06:58] LABS: Anion Gap 11.0 mmol/L (3-11); Blood Urea Nitrogen 12.0 mg/dL (8-24); CO2, Blood 24.0 mmol/L (21-32); Calcium, Blood 8.6 mg/dL (8.5-10.1); Chloride, Blood 97.0 mmol/L (98-108); Creatinine, Blood 0.35 mg/dL (0.40-1.00); Glucose, Blood 202.0 mg/dL (70-99); Magnesium, Blood 1.7 mg/dL (1.6-2.4); Potassium, Blood 4.1 mmol/L (3.5-5.5); Sodium, Blood 128.0 mmol/L (136-145)
[2025-06-17 07:12] VITALS: BP 137/69
[2025-06-17] MEDS ORDERED: Enoxaparin 40 MG/0.4 ML SYR SC SCH (12:00)
[2025-06-17 15:26] VITALS: BP 152/64
[2025-06-17 20:13] VITALS: BP 145/69
[2025-06-18 03:56] VITALS: BP 143/62
--- NOTE | 2025-06-18 04:09 | NUR ---
SHIFT SUMMARY POD #2 LEFT HIP FRACTURE REPAIR; DRESSING CDI. LEFT SHOULDER CLOSED REDUCTION WITH IMMOBILIZER IN PLACE. NO ACUTE EVENTS OVERNIGHT. PT ON ROOM AIR OF THIS NOTE AND SATURATIONS ABOVE 96% WITH CONTINUOUS BIOX IN PLACE. PT CONTINUES TO USE PUREWICK WITH YELLOW URINE. PT CONTINUES TO REQUEST LESS LANTUS THAN ORDERED DOSE SHE DOES NOT WANT TO BECOME HYPOGLYCEMIC. RAC AND R WRIST IV SL.
[2025-06-18 04:38] LABS: BASOPHILS ABSOLUTE AUTO 0.07 K/mm3 (0.00-0.23); BASOPHILS PERCENT AUTO 1 % (0-2); EOSINOPHILS ABSOLUTE AUTO 0.16 K/mm3 (0.00-0.68); EOSINOPHILS PERCENT AUTO 2 % (0-6); Hematocrit 31.8 % (33.0-51.0); Hemoglobin 10.8 g/dL (11.5-16.0); IMMATURE GRAN ABSOLUTE AUTO 0.03 K/mm3 (0.00-0.10); IMMATURE GRAN PERCENT AUTO 0 % (0-1); LYMPHOCYTES ABSOLUTE AUTO 1.96 K/mm3 (0.84-5.20); LYMPHOCYTES PERCENT AUTO 25 % (21-46); MONOCYTES ABSOLUTE AUTO 0.74 K/mm3 (0.16-1.47); MONOCYTES PERCENT AUTO 9 % (4-13); Mean Corpuscular HGB Conc 34.0 g/dL (31.5-36.5); Mean Corpuscular Volume 87 fL (80-100); NEUTROPHILS ABSOLUTE AUTO 5.03 K/mm3 (1.96-9.15); NEUTROPHILS PERCENT AUTO 63 % (41-73); NRBC ABSOLUTE 0.00 K/mm3 (0.00-0.02); NRBC Auto 0.0 /100 WBC (0.0-0.2); Platelet Count 221 K/mm3 (150-400); RDW Coefficient Variation 12.9 % (11.7-14.2); RDW Standard Deviation 41.2 fL (35.1-46.3)
[2025-06-18 04:56] LABS: Anion Gap 9.0 mmol/L (3-11); Blood Urea Nitrogen 18.0 mg/dL (8-24); CO2, Blood 26.0 mmol/L (21-32); Calcium, Blood 8.9 mg/dL (8.5-10.1); Chloride, Blood 96.0 mmol/L (98-108); Creatinine, Blood 0.35 mg/dL (0.40-1.00); Glucose, Blood 224.0 mg/dL (70-99); Potassium, Blood 4.0 mmol/L (3.5-5.5); Sodium, Blood 127.0 mmol/L (136-145)
[2025-06-18 07:16] VITALS: BP 145/74
[2025-06-18 14:27] VITALS: BP 139/71
--- NOTE | 2025-06-18 14:36 | NUR ---
PATIENT CALLED TO GET BACK TO BED. THIS COVER OPERATOR REQUESTED RN TO HELP.PATIENT IS A MAX 2 PERSON TO STAND PIVOT.PATIENT IS VERY WEAK AND FEARFUL WHEN MOVING.PATIENT STAYED IN CHAIR FOR 3.5 HOURS TODAY.
--- NOTE | 2025-06-18 17:37 | NUR ---
SHIFT SUMMARY POD2 L HIP ORIF, A/OX4, VSS, TOLERATING PO, PAIN MANAGED PER EMAR, WORKED WITH THERAPY TODAY AND WAS ABLE TO GET UP TO THE CHAIR WITH ASSISTANCE FOR A FEW HOURS. NO ACUTE EVENTS THIS SHIFT, CALL LIGHT IN REACH.
[2025-06-18 19:31] VITALS: BP 157/102
[2025-06-18 19:32] VITALS: BP 166/74
[2025-06-18 21:24] VITALS: BP 152/78
--- NOTE | 2025-06-19 04:03 | NUR ---
SHIFT SUMMARY NO ACUTE EVENTS OVERNIGHT. PT PRESSURE DRESSING CDI; NEW AQUACEL TO BE PLACED PER ORDER. PT ON 1L O2 VIA NC FOR DESATURATION WHILE SLEEPING. PT TOLERATING PO INTAKE. PT DID REQUEST ENTIRE DOSE OF LONG ACTING INSULIN FOR THIS SHIFT HER BG LEVELS HAVE REMAINED ELEVATED. PT DC PLAN TO [facility] PENDING AUTHORIZATION.
[2025-06-19 05:18] VITALS: BP 165/87
--- NOTE | 2025-06-19 06:04 | NUR ---
DRESSING CHANGE PREVIOUS DRESSING REMOVED. SITE CLEANSED WITH WOUND CLEANSER AND DRIED. AQUACEL X2 PLACED TO COVER 3 SUTURES DUE TO LOCATION OF SUTURES. SCANT BLOOD NOTED DURING DRESSING CHANGE. NO WARMTH OR REDNESS NOTED. PT TOLERATED PROCEDURE WITH NO COMPLAINTS.
[2025-06-19 07:03] VITALS: BP 147/81
--- NOTE | 2025-06-19 08:03 | NUR ---
OFFERED TO GET PATIENT UP TO CHAIR.PATIENT STATED" WHEN MY PAIN IS BETTER." RN NOTIFIED.
--- NOTE | 2025-06-19 11:06 | NUR ---
Pt. is awake and sitting up in a recliner when she welcomed my visit. Pt. is pleasant. After introductions a Life review was facilitated. Listened with both empathy and interest as the Pt. shared about her husbands passing and therole her new restorationism has played. Considered matters of sharan and belief. Pt. displayed evidenc to trust and engagement. lead maintenance technician arrived to draw blood. Pt. verbalized gratitude for the spiritual care visit and welcomed this home health physical therapist to return.
[2025-06-19 11:14] LABS: BASOPHILS ABSOLUTE AUTO 0.07 K/mm3 (0.00-0.23); BASOPHILS PERCENT AUTO 1 % (0-2); EOSINOPHILS ABSOLUTE AUTO 0.20 K/mm3 (0.00-0.68); EOSINOPHILS PERCENT AUTO 2 % (0-6); Hematocrit 32.4 % (33.0-51.0); Hemoglobin 11.1 g/dL (11.5-16.0); IMMATURE GRAN ABSOLUTE AUTO 0.03 K/mm3 (0.00-0.10); IMMATURE GRAN PERCENT AUTO 0 % (0-1); LYMPHOCYTES ABSOLUTE AUTO 1.40 K/mm3 (0.84-5.20); LYMPHOCYTES PERCENT AUTO 16 % (21-46); MONOCYTES ABSOLUTE AUTO 0.88 K/mm3 (0.16-1.47); MONOCYTES PERCENT AUTO 10 % (4-13); Mean Corpuscular HGB Conc 34.3 g/dL (31.5-36.5); Mean Corpuscular Volume 88 fL (80-100); NEUTROPHILS ABSOLUTE AUTO 5.99 K/mm3 (1.96-9.15); NEUTROPHILS PERCENT AUTO 70 % (41-73); NRBC ABSOLUTE 0.00 K/mm3 (0.00-0.02); NRBC Auto 0.0 /100 WBC (0.0-0.2); Platelet Count 200 K/mm3 (150-400); RDW Coefficient Variation 12.9 % (11.7-14.2); RDW Standard Deviation 41.9 fL (35.1-46.3)
[2025-06-19 12:05] LABS: Anion Gap 9.0 mmol/L (3-11); Blood Urea Nitrogen 17.0 mg/dL (8-24); CO2, Blood 26.0 mmol/L (21-32); Calcium, Blood 8.8 mg/dL (8.5-10.1); Chloride, Blood 94.0 mmol/L (98-108); Creatinine, Blood 0.3 mg/dL (0.40-1.00); Glucose, Blood 277.0 mg/dL (70-99); Potassium, Blood 4.1 mmol/L (3.5-5.5); Sodium, Blood 125.0 mmol/L (136-145)
--- NOTE | 2025-06-19 13:27 | NUR ---
DISCHARGE SUMMARY PT IS ALERT AND ORIENTATED TO SELF, PLACE, SITUATION, AND TIME. VSS. SURGICAL SITE DRESSING C/D/I. PAIN MANAGED PER EMAR. PT AMBULATING W/ STAFF, 2X FWW, AND GB. PT TOLERATING INTAKE AND SUFFICIENTLY VOIDING. PHYSICAL THERAPY RECOMMENDED DISCHARGE TO SNF. CALLED REPORT TO NATHALY. PT TRANSFERRED VIA .
== END 2025-06-19 13:25 | DRG 481 ==
LOC: ER 06:40 → SURS 10:14
PROVIDERS: Internal Medicine; Orthopaedic Surgery; Student in an Organized Health Care Education/Training Program; ADMIT Family Medicine
PROC: 0QH734Z Insertion of Internal Fixation Device into Left Upper Femur, Percutaneous Approach (ICD-10-PCS; principal; 2025-06-16 07:30)
PROC: 0PSGXZZ Reposition Left Humeral Shaft, External Approach (ICD-10-PCS; 2025-06-16 07:30)
DX: S72.012A Unspecified intracapsular fracture of left femur, initial encounter for closed fracture (principal); E87.1 Hypo-osmolality and hyponatremia; S42.252A Displaced fracture of greater tuberosity of left humerus, initial encounter for closed fracture; S43.015A Anterior dislocation of left humerus, initial encounter; E03.9 Hypothyroidism, unspecified; I10 Essential (primary) hypertension; E11.40 Type 2 diabetes mellitus with diabetic neuropathy, unspecified; D64.9 Anemia, unspecified; E11.65 Type 2 diabetes mellitus with hyperglycemia; K21.9 Gastro-esophageal reflux disease without esophagitis; G89.29 Other chronic pain; M19.90 Unspecified osteoarthritis, unspecified site; Z60.2 Problems related to living alone; Z88.5 Allergy status to narcotic agent; Z88.1 Allergy status to other antibiotic agents; Z79.4 Long term (current) use of insulin; Z79.890 Hormone replacement therapy; Z79.84 Long term (current) use of oral hypoglycemic drugs; Z79.899 Other long term (current) drug therapy; Z90.49 Acquired absence of other specified parts of digestive tract; Z90.710 Acquired absence of both cervix and uterus; Z98.890 Other specified postprocedural states; W18.30XA Fall on same level, unspecified, initial encounter
CPT/HCPCS: 23650; 36415; 70450; 72125; 73030; 73502; 80048; 82947; 83735; 85025; 94762; 96374; 96375; 97110; 97161; 97166; 97530; 99285-25; A6590; A9270; J0690; J0696; J1100; J1171; J1650; J1815; J1885; J2270; J2405; J2704; J2795; J3010; J3373; J3480; J7050

== ENCOUNTER → 2025-08-15 | Outpatient (CLI) | payer OTHER ==
[~2025-08-15] MED LIST changes: +AMLODIPINE BESYL5 MG PO; +AMOX-CLAV 875-1 EAC5; +Nitrofurantoin100 M1 PO; +PANTOPRAZOLE SO40 M2 PO; +SEMGLEE (Y100 UNIT/2; +SUCRALFATE114 PO
[2025-08-15 16:32] LABS: BASOPHILS ABSOLUTE AUTO 0.07 K/mm3 (0.00-0.23); BASOPHILS PERCENT AUTO 1 % (0-2); EOSINOPHILS ABSOLUTE AUTO 0.05 K/mm3 (0.00-0.68); EOSINOPHILS PERCENT AUTO 1 % (0-6); Hematocrit 36.1 % (33.0-51.0); Hemoglobin 12.0 g/dL (11.5-16.0); IMMATURE GRAN ABSOLUTE AUTO 0.01 K/mm3 (0.00-0.10); IMMATURE GRAN PERCENT AUTO 0 % (0-1); LYMPHOCYTES ABSOLUTE AUTO 1.91 K/mm3 (0.84-5.20); LYMPHOCYTES PERCENT AUTO 38 % (21-46); MONOCYTES ABSOLUTE AUTO 0.49 K/mm3 (0.16-1.47); MONOCYTES PERCENT AUTO 10 % (4-13); Mean Corpuscular HGB Conc 33.2 g/dL (31.5-36.5); Mean Corpuscular Volume 90 fL (80-100); NEUTROPHILS ABSOLUTE AUTO 2.47 K/mm3 (1.96-9.15); NEUTROPHILS PERCENT AUTO 49 % (41-73); NRBC ABSOLUTE 0.00 K/mm3 (0.00-0.02); NRBC Auto 0.0 /100 WBC (0.0-0.2); Platelet Count 307 K/mm3 (150-400); RDW Coefficient Variation 14.2 % (11.7-14.2); RDW Standard Deviation 46.3 fL (35.1-46.3)
[2025-08-15 16:53] LABS: Alanine Aminotransfer (ALT/SGP 25.0 U/L (12-78); Albumin, Blood 3.6 g/dL (3.4-5.0); Albumin/Globulin Ratio 1.3 (0.8-1.8); Anion Gap 9.0 mmol/L (3-11); Aspartate Aminotrans (AST/SGOT 16.0 U/L (12-37); Bilirubin, Total 0.4 mg/dL (0.1-1.0); Blood Urea Nitrogen 13.0 mg/dL (8-24); CO2, Blood 25.0 mmol/L (21-32); Calcium, Blood 9.4 mg/dL (8.5-10.1); Chloride, Blood 100.0 mmol/L (98-108); Creatinine, Blood 0.38 mg/dL (0.40-1.00); Globulin, Blood 2.7 g/dL (2.2-4.0); Glucose, Blood 156.0 mg/dL (70-99); Potassium, Blood 4.1 mmol/L (3.5-5.5); Sodium, Blood 130.0 mmol/L (136-145); Total Protein, Blood 6.3 g/dL (6.4-8.2)
== END ==
LOC: LAB 14:30 → LAB SHORT 14:30
PROVIDERS: Family Medicine
DX: E11.8 Type 2 diabetes mellitus with unspecified complications (principal); I10 Essential (primary) hypertension
CPT/HCPCS: 80053; 83036; 85025